=== PATIENT | female | born 1955 | race African-American/Black ===

== ENCOUNTER 2016-11-13 11:08 | Emergency (ER) | payer OTHER ==
[~2016-11-13] VITALS: Ht 162.6 cm; Wt 86.2 kg
--- NOTE | ~2016-11-13 | EKG ---
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
[~2016-11-13 11:08] MED LIST: ALPRAZOLAM ER1 MG PO; ANUSOL-HC30 GM; ASPIRIN EC81 M1; AZOR 10-20 MG1 EACH PO; DEXILANT60 MG PO; DICLOFENAC SODI75 M1 PO; FISH OIL 1,0001 EAC5 PO; FLEXERIL; HYDROXYZINE HCL25 M1 PO; IRON325 PO; SYNTHROID300 MCG PO; TRAMADOL 50 MG50 MG; VENLAFAXINE HCL75 M2 PO; VITAMINC500 PO; ZINC CHELATE50 MG PO
[2016-11-13 12:06] LABS: HEMATOCRIT 41.9 % (37.0-47.0); MCH 26.4 pg (26.0-34.0); MCHC 33.5 g/dL (28.0-37.0); MCV 78.8 fL (80.0-100.0); PLATELET COUNT 329 thou/uL (150-400); RBC 5.31 mil/uL (4.20-5.00); RDW 14.7 % (10.5-14.5); WBC 7.7 thou/uL (4.0-11.0)
[2016-11-13 12:07] LABS: MANUAL DIFF YES
[2016-11-13 12:24] LABS: ANION GAP 8 mmol/L (7-16); BUN 10 mg/dL (7-18); CALCIUM 9.2 mg/dL (8.5-10.1); CHLORIDE 104 mmol/L (98-107); CO2 27 mmol/L (21-32); CREATININE 0.9 mg/dL (0.6-1.3); GLUCOSE 114 mg/dL (70-99); POTASSIUM 3.9 mmol/L (3.5-5.1); SODIUM 139 mmol/L (136-145)
[2016-11-13 12:31] LABS: ALBUMIN 3.8 g/dL (3.4-5.0); ALKALINE PHOSPHATASE 89 U/L (46-116); SGOT 20 U/L (15-37); SGPT 21 U/L (30-65); TOTAL BILIRUBIN 0.5 mg/dL (<0.1-1.0); TOTAL PROTEIN 7.8 g/dL (6.4-8.2); TROPONIN-I < 0.04 ng/mL (<0.04-0.07)
[2016-11-13 12:53] LABS: URINE BILIRUBIN NEGATIVE (Negative); URINE BLOOD TRACE (Negative); URINE COLOR YELLOW; URINE GLUCOSE-RANDOM* NEGATIVE (Negative); URINE KETONES NEGATIVE (Negative); URINE LEUKOCYTES-REFLEX 1+ (Negative); URINE PROTEIN (DIPSTICK) NEGATIVE (Negative); URINE UROBILINOGEN 0.2 E.U./dl (0.2-1.0)
[2016-11-13 12:58] LABS: SQUAMOUS >10 Many /LPF (0-3)
[2016-11-13 12:59] LABS: CASTS None Seen /LPF (None Seen); CRYSTALS None Seen /LPF (None Seen); URINE RBC 0-2 Rare /HPF (0-2); URINE WBC-REFLEX 0-5 Rare /HPF (0-5)
[2016-11-13 13:01] LABS: TOTAL CELL COUNT 100
[2016-11-13 13:02] LABS: ABSOLUTE NEUTROPHILS 4.2 thou/uL (1.4-8.2)
[2016-11-13] MEDS ORDERED: ZOFRAN ODT4 MG PO (13:03)
== END 2016-11-13 13:51 | disposition home or self-care (01) ==
LOC: ER 11:08
PROVIDERS: Physician Assistant
DX: B34.9 Viral infection, unspecified (principal); I10 Essential (primary) hypertension; K21.9 Gastro-esophageal reflux disease without esophagitis; Z86.2 Personal history of diseases of the blood and blood-forming organs and certain disorders involving the immune mechanism; Z90.710 Acquired absence of both cervix and uterus; Z88.2 Allergy status to sulfonamides; Z88.8 Allergy status to other drugs, medicaments and biological substances

== ENCOUNTER 2017-03-21 23:25 | Emergency (ER) | payer OTHER ==
[~2017-03-21] VITALS: Ht 162.6 cm; Wt 88.5 kg
--- NOTE | ~2017-03-21 | EKG ---
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 : 1955 Requested By: Jorden Navarrete Order Number: [id number] MD: Pankaj Aleman Measurements Intervals [place] Rate: 82 P: 47 IN: 141 QRS: -15 QRSD: 104 T: 40 QT: 416 QTc: 486 Interpretive Statements Sinus rhythm Borderline left axis deviation RSR' in V1 or V2, probably normal variant Borderline prolonged QT interval Compared to ECG 11/13/2016 11:12:46 RSR' in V1 or V2 now present Electronically Signed On 03-26-2017 21:46:57 CDT by Pankaj Aleman [email or web address] <ELECTRONICALLY SIGNED> By: Pankaj Aleman MD 03/26/17 2146 0005 0005 Pankaj Aleman MD /EPI
[~2017-03-21 23:25] MED LIST changes: +ZOFRAN ODT4 MG PO
[2017-03-22 00:45] LABS: ABSOLUTE NEUTROPHILS 7.9 thou/uL (1.4-8.2); ANION GAP 11 mmol/L (7-16); BASOPHILS 1.5 % (0.0-2.0); BUN 23 mg/dL (7-18); CALCIUM 8.4 mg/dL (8.5-10.1); CHLORIDE 105 mmol/L (98-107); CO2 27 mmol/L (21-32); CREATININE 1.1 mg/dL (0.6-1.0); GLUCOSE 101 mg/dL (74-106); HEMATOCRIT 35.3 % (37.0-47.0); HEMOGLOBIN 11.6 gm/dL (12.0-15.0); LYMPHOCYTES 25.4 % (24.0-44.0); MCH 26.1 pg (26.0-34.0); MONOCYTES 6.6 % (1.0-8.0); PLATELET COUNT 316 thou/uL (150-400); POLYS 62.5 % (36.0-66.0); RBC 4.46 mil/uL (4.20-5.00); RDW 13.9 % (10.5-14.5); SODIUM 143 mmol/L (136-145); WBC 12.6 thou/uL (4.0-11.0)
[2017-03-22 00:46] LABS: MANUAL DIFF NO
[2017-03-22 00:50] LABS: PROTIME 9.4 Seconds (9.3-11.4)
[2017-03-22 00:53] LABS: ALBUMIN 3.6 g/dL (3.4-5.0); ALKALINE PHOSPHATASE 71 U/L (46-116); MAGNESIUM 2.2 mg/dL (1.8-2.4); SGOT 22 U/L (15-37); SGPT 22 U/L (30-65); TOTAL BILIRUBIN 0.2 mg/dL (<0.1-1.0); TOTAL PROTEIN 7.2 g/dL (6.4-8.2); TROPONIN-I < 0.04 ng/mL (<0.04-0.07)
== END 2017-03-22 01:50 | disposition home or self-care (01) ==
LOC: ER 23:25
PROVIDERS: Emergency Medicine
DX: R20.2 Paresthesia of skin (principal); G56.01 Carpal tunnel syndrome, right upper limb; I10 Essential (primary) hypertension; K21.9 Gastro-esophageal reflux disease without esophagitis; F10.99 Alcohol use, unspecified with unspecified alcohol-induced disorder; Z86.2 Personal history of diseases of the blood and blood-forming organs and certain disorders involving the immune mechanism; Z71.1 Person with feared health complaint in whom no diagnosis is made; Z90.710 Acquired absence of both cervix and uterus; Z88.2 Allergy status to sulfonamides; Z88.8 Allergy status to other drugs, medicaments and biological substances